=== PATIENT | male | born 1985 | race Caucasian/White ===

== ENCOUNTER 2016-11-03 20:24 | Emergency (ER) | payer BC, OTHER | END 2016-11-04 00:08 | disposition home or self-care (01) | LOC: ER1 20:24 | DX: R31.9 Hematuria, unspecified (principal); M54.5 Low back pain | CPT/HCPCS: 36415; 81001; 99283 ==

== ENCOUNTER → 2016-11-14 | Outpatient (CLI) | payer BC, OTHER | LOC: CT 15:00 | DX: R31.29 Other microscopic hematuria (principal) | CPT/HCPCS: J7050; Q9962 ==

== ENCOUNTER → 2016-12-30 | Outpatient (CLI) | payer OTHER | LOC: KOH-I 11:58 | DX: M54.9 Dorsalgia, unspecified (principal); M79.7 Fibromyalgia | CPT/HCPCS: 72110; 72202; 73502 ==

== ENCOUNTER 2020-08-12 23:45 | Emergency (ER) | payer OTHER ==
[~2020-08-12 23:45] MED LIST: ASPIR 8181 MG PO; BENADRYL25 MG PO; EPIPEN 2-P0.3 MG/0.3 INJ; LOPRESSOR 25 MG25 MG PO; PREDNISONE 50 M50 MG PO
[2020-08-13 00:38] LABS: HEMOGLOBIN 14.2 gm/dl (14.0-17.5); RED BLOOD COUNT 4.64 M/UL (4.20-5.50); WHITE BLOOD COUNT 9.8 K/UL (4.5-11.0)
[2020-08-13 00:56] LABS: BUN/CREATININE RATIO 11 (0-10)
== END 2020-08-13 02:00 | disposition home or self-care (01) ==
LOC: ER1 23:45
PROVIDERS: Family Medicine
DX: R00.2 Palpitations (principal); M62.82 Rhabdomyolysis; R42 Dizziness and giddiness; Z86.79 Personal history of other diseases of the circulatory system
CPT/HCPCS: 80053; 82550; 82553; 83874; 84439; 84443; 84484; 85025; 93005; 93242; 99285

== ENCOUNTER → 2020-09-04 | Outpatient (CLI) | payer OTHER ==
[~2020-09-04] MED LIST changes: +BUSPIRONE HCL5 MG PO; +IBUPROFEN600 MG PO; +K-DUR TAB 20 M20 MEQ PO; +PROTONIX20 MG PO
== END ==
LOC: KOH-I 09:34
DX: N20.0 Calculus of kidney (principal)
CPT/HCPCS: 74018

== ENCOUNTER 2020-11-28 00:49 | Emergency (ER) | payer OTHER ==
[~2020-11-28 00:49] MED LIST changes: -BUSPIRONE HCL5 MG PO; -IBUPROFEN600 MG PO; -K-DUR TAB 20 M20 MEQ PO; -PROTONIX20 MG PO
[2020-11-28 02:01] LABS: HEMOGLOBIN 13.5 gm/dl (14.0-17.5); RED BLOOD COUNT 4.47 M/UL (4.20-5.50); WHITE BLOOD COUNT 6.5 K/UL (4.5-11.0)
[2020-11-28 02:24] LABS: BUN/CREATININE RATIO 13 (0-10)
[2020-11-28] MEDS ORDERED: BUSPIRONE HCL5 MG PO (04:26)
[2020-11-28] MEDS ORDERED: K-DUR TAB 20 M20 MEQ PO (04:26)
== END 2020-11-28 04:35 | disposition home or self-care (01) ==
LOC: ER1 00:49
PROVIDERS: Physician Assistant
DX: R00.2 Palpitations (principal); F41.9 Anxiety disorder, unspecified; E87.6 Hypokalemia; I10 Essential (primary) hypertension; Z79.899 Other long term (current) drug therapy
CPT/HCPCS: 71045; 80053; 82550; 82553; 83735; 83874; 84439; 84443; 84484; 85025; 93005; 99285

== ENCOUNTER 2020-12-23 18:47 | Emergency (ER) | payer OTHER ==
[~2020-12-23 18:47] MED LIST changes: +BUSPIRONE HCL5 MG PO; +K-DUR TAB 20 M20 MEQ PO
== END 2020-12-23 19:16 | disposition left against medical advice (07) ==
LOC: ER1 18:47
DX: Z53.21 Procedure and treatment not carried out due to patient leaving prior to being seen by health care provider (principal)

== ENCOUNTER 2021-01-23 22:09 | Emergency (ER) | payer OTHER | END 2021-01-24 01:49 | disposition home or self-care (01) | LOC: ER1 22:09 | DX: I10 Essential (primary) hypertension (principal); K21.9 Gastro-esophageal reflux disease without esophagitis; Z90.89 Acquired absence of other organs | CPT/HCPCS: 99283 ==

== ENCOUNTER 2021-01-30 01:51 | Emergency (ER) | payer OTHER ==
[2021-01-30 03:15] LABS: HEMOGLOBIN 15.4 gm/dl (14.0-17.5); RED BLOOD COUNT 4.81 M/UL (4.20-5.50); WHITE BLOOD COUNT 7.1 K/UL (4.5-11.0)
[2021-01-30 03:28] LABS: BUN/CREATININE RATIO 12 (0-10)
[2021-01-30] MEDS ORDERED: IBUPROFEN600 MG PO (05:56)
== END 2021-01-30 06:06 | disposition home or self-care (01) ==
LOC: ER1 01:51
PROVIDERS: Physician Assistant
DX: R07.9 Chest pain, unspecified (principal); R06.02 Shortness of breath; E87.6 Hypokalemia; K21.9 Gastro-esophageal reflux disease without esophagitis
CPT/HCPCS: 71045; 80053; 80307; 81001; 82550; 82553; 83874; 83880; 84484; 85025; 85379; 85610; 85730; 87086; 93005; 99285; Q9967

== ENCOUNTER 2021-02-08 17:56 | Emergency (ER) | payer OTHER ==
[~2021-02-08 17:56] MED LIST changes: +IBUPROFEN600 MG PO
[2021-02-08 18:13] LABS: HEMOGLOBIN 15.4 gm/dl (14.0-17.5); RED BLOOD COUNT 4.79 M/UL (4.20-5.50); WHITE BLOOD COUNT 5.8 K/UL (4.5-11.0)
[2021-02-08 18:32] LABS: BUN/CREATININE RATIO 11 (0-10)
[2021-02-08] MEDS ORDERED: PROTONIX20 MG PO (18:39)
== END 2021-02-08 18:56 | disposition home or self-care (01) ==
LOC: ER1 17:56
PROVIDERS: Emergency Medicine
DX: R10.13 Epigastric pain (principal); R07.9 Chest pain, unspecified; E11.9 Type 2 diabetes mellitus without complications; K21.9 Gastro-esophageal reflux disease without esophagitis
CPT/HCPCS: 71045; 80053; 82550; 82553; 83690; 83874; 84484; 85025; 93005; 96374; 99285

== ENCOUNTER → 2021-03-01 | Outpatient (CLI) | payer OTHER ==
[~2021-03-01] MED LIST changes: +CIPRO500 MG PO; +PROTONIX20 MG PO
== END ==
LOC: EXRD 02-26 08:00
DX: R10.11 Right upper quadrant pain (principal); K76.0 Fatty (change of) liver, not elsewhere classified
CPT/HCPCS: 76705

== ENCOUNTER 2021-04-15 15:45 | Emergency (ER) | payer OTHER ==
[~2021-04-15 15:45] MED LIST changes: -CIPRO500 MG PO
[2021-04-15] MEDS ORDERED: CIPRO500 MG PO (17:02)
== END 2021-04-15 17:16 | disposition home or self-care (01) ==
LOC: ER1 15:45
DX: S91.331A Puncture wound without foreign body, right foot, initial encounter (principal); Z23 Encounter for immunization; W22.8XXA Striking against or struck by other objects, initial encounter
CPT/HCPCS: 73630; 90471; 90715; 99283

== ENCOUNTER → 2021-04-24 | Outpatient (CLI) | payer OTHER ==
[~2021-04-24] MED LIST changes: +CIPRO500 MG PO
== END ==
LOC: HEART 5 08:28
DX: Z01.810 Encounter for preprocedural cardiovascular examination (principal); R00.1 Bradycardia, unspecified; R00.2 Palpitations; I07.1 Rheumatic tricuspid insufficiency
CPT/HCPCS: 93306

== ENCOUNTER 2021-06-21 09:27 | Emergency (ER) | payer OTHER ==
[2021-06-21 10:12] LABS: HEMOGLOBIN 14.4 gm/dl (14.0-17.5); RED BLOOD COUNT 4.8 M/UL (4.20-5.50); WHITE BLOOD COUNT 6.5 K/UL (4.5-11.0)
[2021-06-21 10:39] LABS: BUN/CREATININE RATIO 16 (0-10)
== END 2021-06-21 14:00 | disposition home or self-care (01) ==
LOC: ER1 09:27
PROVIDERS: Physician Assistant
DX: R06.02 Shortness of breath (principal); F41.9 Anxiety disorder, unspecified; K21.9 Gastro-esophageal reflux disease without esophagitis
CPT/HCPCS: 36415; 71045; 80053; 82550; 82553; 83874; 84484; 85025; 85379; 93005; 99285; J7030

== ENCOUNTER 2021-06-30 17:52 | Emergency (ER) | payer OTHER ==
[2021-06-30 18:55] LABS: HEMOGLOBIN 14.8 gm/dl (14.0-17.5); RED BLOOD COUNT 4.76 M/UL (4.20-5.50); WHITE BLOOD COUNT 6.4 K/UL (4.5-11.0)
[2021-06-30 19:26] LABS: BUN/CREATININE RATIO 13 (0-10)
[2021-06-30] MEDS ORDERED: PROVENTIL HFA6.7 GM INH (22:13)
[2021-06-30] MEDS ORDERED: BENZONATATE100 MG PO (22:13)
== END 2021-06-30 22:40 | disposition home or self-care (01) ==
LOC: ER1 17:52
PROVIDERS: Physician Assistant
DX: R06.02 Shortness of breath (principal); R05.9 Cough, unspecified; Z20.822 Contact with and (suspected) exposure to COVID-19
CPT/HCPCS: 0240U; 71045; 80053; 80307; 81001; 83880; 85025; 87086; 93005; 94640; 94664; 96374; 99285; J2930

== ENCOUNTER 2021-07-19 01:10 | Emergency (ER) | payer OTHER ==
[~2021-07-19 01:10] MED LIST changes: +BENZONATATE100 MG PO; +PROVENTIL HFA6.7 GM INH
== END 2021-07-19 01:25 | disposition left against medical advice (07) ==
LOC: ER1 01:10
DX: Z53.21 Procedure and treatment not carried out due to patient leaving prior to being seen by health care provider (principal)
CPT/HCPCS: 93005

== ENCOUNTER 2021-08-17 21:10 | Emergency (ER) | payer OTHER ==
[2021-08-17 21:55] LABS: HEMOGLOBIN 14.5 gm/dl (14.0-17.5); RED BLOOD COUNT 4.79 M/UL (4.20-5.50)
[2021-08-17 22:33] LABS: BUN/CREATININE RATIO 10 (0-10)
== END 2021-08-17 23:50 | disposition home or self-care (01) ==
LOC: ER1 21:10
PROVIDERS: Family Medicine
DX: U07.1 COVID-19 (principal); K21.9 Gastro-esophageal reflux disease without esophagitis
CPT/HCPCS: 71045; 80048; 85025; 96374; 99283; J2405; U0002

== ENCOUNTER 2021-09-12 07:04 | Emergency (ER) | payer OTHER ==
[2021-09-12 07:44] LABS: HEMOGLOBIN 15.3 gm/dl (14.0-17.5); RED BLOOD COUNT 4.95 M/UL (4.20-5.50); WHITE BLOOD COUNT 8.3 K/UL (4.5-11.0)
[2021-09-12 08:10] LABS: BUN/CREATININE RATIO 15 (0-10)
[2021-09-12] MEDS ORDERED: ZOFRAN 4 MG TAB4 MG PO (10:14)
== END 2021-09-12 10:19 | disposition home or self-care (01) ==
LOC: ER1 07:04
PROVIDERS: Physician Assistant
DX: R10.9 Unspecified abdominal pain (principal); K21.9 Gastro-esophageal reflux disease without esophagitis; F41.9 Anxiety disorder, unspecified
CPT/HCPCS: 71045; 80053; 81001; 82550; 82553; 83690; 83874; 84484; 85025; 93005; 96374; 96375; 99284; J1885; J2405; Q9967

== ENCOUNTER → 2021-10-16 | Outpatient (CLI) | payer OTHER ==
[~2021-10-16] MED LIST changes: +ZOFRAN 4 MG TAB4 MG PO
== END ==
LOC: HEART 5 14:26
DX: R55 Syncope and collapse (principal); R00.2 Palpitations

== ENCOUNTER 2021-10-30 11:31 | Emergency (ER) | payer OTHER ==
[2021-10-30 12:22] LABS: HEMOGLOBIN 15.7 gm/dl (14.0-17.5); RED BLOOD COUNT 5.08 M/UL (4.20-5.50); WHITE BLOOD COUNT 5.5 K/UL (4.5-11.0)
[2021-10-30 12:58] LABS: BUN/CREATININE RATIO 12 (0-10)
== END 2021-10-30 14:16 | disposition home or self-care (01) ==
LOC: ER1 11:31
PROVIDERS: Physician Assistant
DX: R20.2 Paresthesia of skin (principal)
CPT/HCPCS: 70450; 80053; 85025; 99284

== ENCOUNTER → 2021-11-06 | Outpatient (CLI) | payer OTHER | LOC: EXRD 10:57 | DX: M25.521 Pain in right elbow (principal) | CPT/HCPCS: 73080 ==

== ENCOUNTER → 2021-12-19 | Outpatient (CLI) | payer OTHER ==
[~2021-12-19] MED LIST changes: +VISTARIL 50 MG50 MG PO; +ZOFRAN ODT 4 MG4 MG SL
== END ==
LOC: EXRD 10:02
DX: R31.9 Hematuria, unspecified (principal); M54.9 Dorsalgia, unspecified; R14.3 Flatulence
CPT/HCPCS: 74018

== ENCOUNTER 2021-12-28 21:06 | Emergency (ER) | payer OTHER ==
[2021-12-28] MEDS ORDERED: AMOX TR-K CLV1 EAC4 PO (22:21)
== END 2021-12-28 22:28 | disposition home or self-care (01) ==
LOC: ER1 21:06
DX: S81.852A Open bite, left lower leg, initial encounter (principal); K21.9 Gastro-esophageal reflux disease without esophagitis; W54.0XXA Bitten by dog, initial encounter
CPT/HCPCS: 99283

== ENCOUNTER → 2021-12-30 | Outpatient (CLI) | payer OTHER ==
[~2021-12-30] MED LIST changes: +AMOX TR-K CLV1 EAC4 PO
== END ==
LOC: EXRD 13:32
DX: M25.562 Pain in left knee (principal); S81.852S Open bite, left lower leg, sequela
CPT/HCPCS: 73562

== ENCOUNTER 2021-12-31 19:20 | Emergency (ER) | payer OTHER ==
[2021-12-31 19:48] LABS: HEMOGLOBIN 15.1 gm/dl (14.0-17.5); RED BLOOD COUNT 4.88 M/UL (4.20-5.50); WHITE BLOOD COUNT 7.5 K/UL (4.5-11.0)
[2021-12-31 20:30] LABS: BUN/CREATININE RATIO 12 (0-10)
== END 2022-01-01 01:36 | disposition home or self-care (01) ==
LOC: ER1 19:20
PROVIDERS: Student in an Organized Health Care Education/Training Program
DX: R07.9 Chest pain, unspecified (principal); I51.9 Heart disease, unspecified; K21.9 Gastro-esophageal reflux disease without esophagitis; F17.220 Nicotine dependence, chewing tobacco, uncomplicated
CPT/HCPCS: 71045; 80053; 82550; 82553; 84484; 85025; 85379; 85610; 85730; 93005; 99285

== ENCOUNTER → 2022-01-09 | Emergency (ER) | payer OTHER | END | disposition left against medical advice (07) | LOC: ER1 05:26 | DX: Z53.21 Procedure and treatment not carried out due to patient leaving prior to being seen by health care provider (principal) ==

== ENCOUNTER 2022-01-23 16:03 | Emergency (ER) | payer OTHER ==
[2022-01-23 16:51] LABS: HEMOGLOBIN 14.6 gm/dl (14.0-17.5); RED BLOOD COUNT 4.69 M/UL (4.20-5.50); WHITE BLOOD COUNT 6.3 K/UL (4.5-11.0)
[2022-01-23 17:19] LABS: BUN/CREATININE RATIO 11 (0-10)
== END 2022-01-23 19:25 | disposition left against medical advice (07) ==
LOC: ER1 16:03
DX: R94.31 Abnormal electrocardiogram [ECG] [EKG] (principal); K21.9 Gastro-esophageal reflux disease without esophagitis
CPT/HCPCS: 71045; 80053; 82550; 82553; 84484; 85025; 93005; 99281

== ENCOUNTER 2022-03-05 01:07 | Emergency (ER) | payer OTHER ==
[2022-03-05 01:31] LABS: HEMOGLOBIN 14.6 gm/dl (14.0-17.5); RED BLOOD COUNT 4.71 M/UL (4.20-5.50); WHITE BLOOD COUNT 5.8 K/UL (4.5-11.0)
[2022-03-05 01:58] LABS: BUN/CREATININE RATIO 9 (0-10)
== END 2022-03-05 03:30 | disposition home or self-care (01) ==
LOC: ER1 01:07
PROVIDERS: Emergency Medicine
DX: R00.2 Palpitations (principal)
CPT/HCPCS: 80053; 82550; 82553; 84439; 84443; 84484; 85025; 93005; 99281

== ENCOUNTER 2022-03-24 05:54 | Emergency (ER) | payer OTHER | END 2022-03-24 09:53 | disposition home or self-care (01) | LOC: ER1 05:54 | DX: M54.6 Pain in thoracic spine (principal); R07.9 Chest pain, unspecified; K21.9 Gastro-esophageal reflux disease without esophagitis | CPT/HCPCS: 71045; 82550; 82553; 84484; 93005; 99284 ==

== ENCOUNTER → 2022-03-24 | Emergency (ER) | payer OTHER ==
[2022-03-24 01:29] LABS: RED BLOOD COUNT 4.85 M/UL (4.20-5.50); WHITE BLOOD COUNT 8.9 K/UL (4.5-11.0)
[2022-03-24 01:50] LABS: BUN/CREATININE RATIO 14 (0-10)
== END | disposition left against medical advice (07) ==
LOC: ER1 00:34
DX: Z53.21 Procedure and treatment not carried out due to patient leaving prior to being seen by health care provider (principal)
CPT/HCPCS: 80053; 82550; 82553; 84484; 85025; 93005